=== PATIENT | female | born 2005 | race African-American/Black ===

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

== ENCOUNTER 2023-07-04 13:52 | Emergency (ER) | payer SELFPAY ==
[2023-07-04 13:56] VITALS: BP 130/78; PULSE 82; RESP 16; TEMP 36.6; O2SAT 100; BMI 23.4
[2023-07-04 14:00] VITALS: BP 115/70; PULSE 84; RESP 18; O2SAT 98
--- NOTE | 2023-07-04 14:07 | ED_ITS ---
HPI - General Adult General Chief complaint: Allergic Reaction Stated complaint: allergic reaction-shortness of breath Time Seen by Provider: 07/04/23 14:02 Source: patient Mode of arrival: ambulatory Limitations: no limitations History of Present Illness HPI narrative: 17-year-old female coming in today after an exposure to peanut butter. Patient states that she has a peanut and tree nut allergy, the last time she had an exposure was approximately 5 years ago where she felt that her throat was closing up. She also ingested a walnut cookie when she was a child and needed an EpiPen at that time as her throat felt like it was closing it was difficult to breathe. She states that she is very careful about what she eats and who eats next to her. Unfortunately, today she was having lunch and noticed that th e person next to her was having peanut butter. She did not touch the peanut butter or touch the person next to her however she was at work when this occurred her boss at work told her to come in to be evaluated. Patient denies any swelling of the lips or tongue, difficulty breathing, no throat closing or swelling. She states that she feels fine. Of note she does not have any epi pens with her and she left hers in [facility]. Related Data Home Medications Medication Instructions Recorded Confirmed escitalopram oxalate 5 mg tablet 5 mg PO DAILY 07/04/23 07/04/23 Previous Rx's Medication Instructions Recorded epinephrine 0.3 mg/0.3 mL 0.3 mg (0.3 mL) IM Q5-15M PRN #2 ea 07/04/23 injection, auto-injector (EpiPen) Allergies Allergy/AdvReac Type Severity Reaction Status Date / Time banana Allergy Severe Anaphylaxis Verified 07/09/22 08:20 cat dander Allergy Mild itchy Verified 07/09/22 08:20 peanut Allergy Severe Anaphylaxis Uncoded 07/09/22 08:20 dust and pollen Allergy Mild itchy Uncoded 07/09/22 08:20 throat Review of Systems Status of ROS: Reports: 10 or more systems reviewed and unremarkable except as noted in History and below [facility] Medical History Chest pain ?R07.9 - Chest pain, unspecified (ICD-10) Allergies ?T78.40XA - Allergy, unspecified, initial encounter (ICD-10) Anxiety ?F41.9 - Anxiety disorder, unspecified (ICD-10) Social History Smoking Status: Never smoker Do you use any of these nicotine containing products: None Second hand tobacco smoke exposure: No How often do you have a drink containing alcohol: never AUDIT-C Alcohol total score: 0 Non-prescribed substance use: denies use service: No Exam Narrative: Exam Narrative: Well-nourished well-developed patient in no acute distress. Alert and oriented. Answers questions appropriately. Mood and affect are appropriate. Thoughts are goal oriented and rational. No tangential or magical thinking noted. Patient speaks in full sentences without needing to catch her breath. Voice sounds normal. Speech is not slurred or pressured. HEENT: Normocephalic atraumatic. Pupils are equally round reactive to light. Extraocular muscles are intact. Conjunctivae are moist without any icterus noted. Moist mucous membranes. Posterior pharynx is normal. Neck is soft without any lymphadenopathy or thyromegaly. No masses are appreciated. Lips and tongue appear normal. Soft palate is not swollen. Cardiovascular: Heart is regular rate and rhythm S1 and S2 are present without any murmurs. Lungs: Clear to auscultation bilaterally no wheezes rhonchi or rales are lavern reciated. Patient takes deep breaths without any discomfort. Skin: Well perfused without any obvious rashes. Const: Vital Signs, click to edit/add: Vital Signs - 24 hr 07/04/23 13:56 Temperature 97.9 F Pulse Rate [Pulse Oximeter] 82 Respiratory Rate 16 Blood Pressure [Le ft Upper Arm] 130/78 Pulse Oximetry 100 Oxygen Delivery Me thod Room Air Course Vital Signs Vital signs: Initial Vital Signs Temperature 97.9 F 07/04/23 13:56 Temperature Source Temporal Artery Scan 07/04/23 13:56 Pulse Rate 82 07/04/23 13:56 Respiratory Rate 16 07/04/23 13:56 Blood Pressure 130/78 07/04/23 13:56 Blood Pressure Mean 95 07/04/23 13:56 Blood Pressure Position Sitting 07/04/23 13:56 Pulse Oximetry 100 07/04/23 13:56 Oxygen Delivery Method Room Air 07/04/23 13:56 Vital Signs Temperature 97.9 F 07/04/23 13:56 Pulse Rate 82 07/04/23 13:56 Respiratory Rate 16 07/04/23 13:56 Blood Pressure 130/78 07/04/23 13:56 Pulse Oximetry 100 07/04/23 13:56 Oxygen Delivery Method Room Air 07/04/23 13:56 Temperature 97.9 F 07/04/23 13:56 Pulse Rate 82 07/04/23 13:56 Respiratory Rate 16 07/04/23 13:56 Blood Pressure 130/78 07/04/23 13:56 Pulse Oximetry 100 07/04/23 13:56 Oxygen Delivery Method Room Air 07/04/23 13:56 Medical Decision Making MDM Narrative Medical decision making narrative: 17-year-old female with peanut allergy, exposure via airborne particles to peanut butter through someone eating lunch close to her. Patient currently completely asymptomatic. Exposure occurred approximately 1-1/2 hours ago. At this time no further treatment is recommended. I will go ahead and refill her EpiPen so she has them with her. We discussed if she feels itchy later she can certainly take a Benadryl or return to the ED. She felt comfortable with this plan and had no other questions. Discharge Plan Discharge Clinical Impression: Allergic reaction Patient Disposition: Home, Self-Care Condition: Stable Additional Instructions: Should you develop symptoms later today which is unlikely, you can go ahead and take Benadryl as directed. If you feel like you are having difficult time breathing or your lips or tongue or swelling up, return to the ED. Prescriptions: New epinephrine [EpiPen] 0.3 mg/0.3 mL auto-injector 0.3 mg IM Q5-15M PRNQty: 2 0RF Rx Instructions: do not exceed 3 doses per episode No Action escitalopram oxalate 5 mg tablet 5 mg PO DAILY Follow Up/Referrals: Provider,Not a Local [Primary Care Provider] - Stand Alone Forms: [facility] Info Instructions
== END 2023-07-04 14:35 | disposition home or self-care (01) ==
LOC: ED 14:16
PROVIDERS: Emergency Provider Family Medicine
DX: Z77.29 Contact with and (suspected) exposure to other hazardous substances (principal); Z91.010 Allergy to peanuts
CPT/HCPCS: 99282; 99283